=== PATIENT | female | born 1955 ===

== ENCOUNTER 2021-10-26 05:52 | Day surgery (SDC) | payer OTHER ==
[~2021-10-26] VITALS: Ht 160 cm; Wt 73.5 kg
[~2021-10-26 05:52] MED LIST: D3 + K2 DOTS 11 EACH PO; FOSAMAX70 MG PO; GABAPENTIN400 MG PO; HYDROCHLOROTHIA25 MG PO; LIPITOR20 MG PO; VASOTEC20 M1 PO
== END 2021-10-26 11:35 | disposition home or self-care (01) ==
LOC: CIR.AMB 05:52
PROVIDERS: ATTEND Surgery
DX: L72.0 Epidermal cyst (principal); Z88.2 Allergy status to sulfonamides; Z20.822 Contact with and (suspected) exposure to COVID-19; I10 Essential (primary) hypertension; J45.909 Unspecified asthma, uncomplicated; Z87.891 Personal history of nicotine dependence; E78.00 Pure hypercholesterolemia, unspecified; M85.80 Other specified disorders of bone density and structure, unspecified site; Z85.828 Personal history of other malignant neoplasm of skin